=== PATIENT | male | born 1985 ===

== ENCOUNTER 2020-12-07 13:46 | Inpatient (IN) ==
[2020-12-07 14:36] LABS: Basophils # 0.1 10*3/uL (0.0-0.2); Basophils % 0.4 % (0.0-0.8); Eosinophils % 0.1 % (0.00-10.9); Hematocrit 51.7 VOL% (42.0-52.0); Hemoglobin 16.8 GM/DL (14.0-18.0); Immature Granulocytes % 0.3 %; Immature Granulocytes Absolute 0.04 #; Lymphocytes # 3.2 10*3/uL (1.4-4.0); Lymphocytes % 27.3 % (21.2-54.2); Mean Corpuscular HGB Conc 32.5 GM/DL (32-36); Mean Corpuscular Volume 86.6 FL (87-102); Mean Platelet Volume 11.7 FL (9.6-12.0); Neutrophils % 64.9 % (38.7-73.9); Platelet Count 296 T/CUMM (130-400); Red Blood Count 5.97 MC/CUMM (3.8-5.5); Red Cell Distribution Width 13.8 % (9.3-17.3); White Blood Count 11.5 T/CUMM (4-12)
[2020-12-07] MEDS ORDERED: SODIUM CHLORIDE 0.9% 2,000 ML IV STA (14:53)
[2020-12-07 15:02] LABS: Albumin 4.4 G/DL (3.4-5.0); Bilirubin,Total 0.6 MG/DL (0.2-1.0); Calcium 10.4 MG/DL (8.5-10.1); Osmolality,Calculated 295.2 MOS/KG (273-304); Potassium 5.4 MMOL/L (3.5-5.1); Total Protein 9.3 G/DL (5.0-7.5)
[2020-12-07 15:23] LABS: Bilirubin,Urine Negative (Negative); Blood, Urine Small mg/dL (Negative); Glucose,Urine (UA) >=500 mg/dL (Negative); Ketones,Urine 20 mg/dL (Negative); Nitrite,Urine Negative (Negative); Protein,Urine Negative; RBC,Urine 3 /HPF (0-4); Squamous Epithelial Cell,Urine Occasional /HPF (0-10); Urine Appearance CLEAR (Clear); Urine Color Straw (Yellow); Urine Specific Gravity 1.025 (1.001-1.035); Urine Urobilinogen < 2.0 EU/DL (0.2-1.0); WBC,Urine 1 /HPF (0-6)
[2020-12-07] MEDS ORDERED: INSULIN REGULAR 100 UNIT/ML IV STA (15:32)
[2020-12-07 16:26] LABS: ABG Base Excess -7.3 MMOL/L (-2.5-2.5); ABG HCO3 18.7 MMOL/L (20-26); ABG Oxygen Saturation 96.8 % (95-100); ABG PCO2 34.2 MM HG (35-48); ABG PH 7.326 (7.35-7.45); ABG PO2 99.2 MM HG (80-95); Pt O2 Delivery Device Room Air
[2020-12-07] MEDS ORDERED: ALBUTEROL 2.5 MG/3 ML NEB RESP TX PRN (17:12)
[2020-12-07] MEDS ORDERED: ALUMINUM/MAGNES/SIMETH MAX STR 30 ML UDCUP PO PRN (17:12)
[2020-12-07] MEDS ORDERED: ONDANSETRON 4 MG/2 ML VIAL IV PRN (17:12)
[2020-12-07] MEDS ORDERED: POTASSIUM CHLORIDE RIDER 10 MEQ in PREMIX 1 EACH IV PRN (17:14)
[2020-12-07] MEDS ORDERED: INSULIN REGULAR 100 UNIT/ML IV ONE (17:14)
[2020-12-07] MEDS ORDERED: DEXTROSE 50% 25 GM/50 ML VIAL IV PRN ×2 (17:14)
[2020-12-07] MEDS ORDERED: MAGNESIUM SULF RIDER 4 GM in PREMIX 1 EACH IV PRN (17:14)
[2020-12-07] MEDS ORDERED: MAGNESIUM SULF RIDER 2 GM in PREMIX 1 EACH IV PRN (17:14)
[2020-12-07] MEDS ORDERED: SODIUM CHLORIDE 0.9% 1,000 ML IV SCH (17:30)
[2020-12-07] MEDS ORDERED: FAMOTIDINE 20 MG/2 ML VIAL IV SCH (17:30)
[2020-12-07] MEDS ORDERED: INSULIN REGULAR DRIP 100 ML IV SCH (17:30)
[2020-12-07] MEDS ORDERED: LACTATED RINGERS 1,000 ML IV ONE (17:55)
[2020-12-07] MEDS ORDERED: GLUCAGON 1 MG VIAL IM PRN (17:56)
[2020-12-07] MEDS: INSULIN NPH/REGULAR 70/30 100 UNIT/ML SUBCUT SCH (18:10)
[2020-12-07 19:02] LABS: Calcium 9.7 MG/DL (8.5-10.1); Osmolality,Calculated 299.8 MOS/KG (273-304); Potassium 4.8 MMOL/L (3.5-5.1)
[2020-12-07] MEDS: LACTATED RINGERS 1,000 ML IV SCH (19:19)
[2020-12-07] MEDS: INSULIN LISPRO 100 UNIT/ML SUBCUT SCH (21:03)
[2020-12-08] MEDS: INSULIN LISPRO 100 UNIT/ML SUBCUT SCH ×5 (00:14→21:28)
[2020-12-08] MEDS: LACTATED RINGERS 1,000 ML IV SCH (01:53)
[2020-12-08 02:51] LABS: Basophils # 0.1 10*3/uL (0.0-0.2); Basophils % 0.9 % (0.0-0.8); Eosinophils # 0.2 10*3/uL (0.0-0.87); Eosinophils % 1.7 % (0.00-10.9); Hematocrit 38.6 VOL% (42.0-52.0); Immature Granulocytes % 0.2 %; Immature Granulocytes Absolute 0.02 #; Lymphocytes # 3.8 10*3/uL (1.4-4.0); Lymphocytes % 40.7 % (21.2-54.2); Mean Corpuscular HGB Conc 32.1 GM/DL (32-36); Mean Corpuscular Volume 86.5 FL (87-102); Mean Platelet Volume 11.8 FL (9.6-12.0); Monocytes % 9.6 % (1.7-12.7); Neutrophils % 46.9 % (38.7-73.9); White Blood Count 9.2 T/CUMM (4-12)
[2020-12-08 02:53] LABS: Hemoglobin 12.4 GM/DL (14.0-18.0); Platelet Count 209 T/CUMM (130-400); Red Blood Count 4.46 MC/CUMM (3.8-5.5)
[2020-12-08 02:56] LABS: Albumin 2.8 G/DL (3.4-5.0); Bilirubin,Total 0.5 MG/DL (0.2-1.0); Calcium 8.6 MG/DL (8.5-10.1); Osmolality,Calculated 288.5 MOS/KG (273-304); Potassium 3.9 MMOL/L (3.5-5.1); Risk Ratio 6.59; Total Protein 6.2 G/DL (5.0-7.5); VLDL CHOLESTEROL 28.6 MG/DL
[2020-12-08 05:10] LABS: Osmolality,Calculated 288.5 MOS/KG (273-304); Potassium 4.1 MMOL/L (3.5-5.1)
[2020-12-08] MEDS: INSULIN NPH/REGULAR 70/30 100 UNIT/ML SUBCUT SCH ×2 (07:47→08:20)
[2020-12-08] MEDS: FAMOTIDINE 20 MG TABLET PO SCH ×2 (08:21→21:28)
[2020-12-08] MEDS: POTASSIUM CHLORIDE 20 MEQ TABLET PO SCH ×2 (08:21→13:09)
[2020-12-08] MEDS ORDERED: ACETAMINOPHEN 500 MG TABLET PO PRN (09:31)
[2020-12-08] MEDS ORDERED: POTASSIUM CHLORIDE 20 MEQ TABLET PO SCH (13:30)
[2020-12-08] MEDS ORDERED: INSULIN NPH/REGULAR 70/30 100 UNIT/ML SUBCUT SCH (16:30)
[2020-12-09 07:46] LABS: Calcium 8.7 MG/DL (8.5-10.1); Osmolality,Calculated 280.1 MOS/KG (273-304); Potassium 3.7 MMOL/L (3.5-5.1)
[2020-12-09] MEDS: INSULIN LISPRO 100 UNIT/ML SUBCUT SCH ×4 (08:20→20:57)
[2020-12-09] MEDS: INSULIN NPH/REGULAR 70/30 100 UNIT/ML SUBCUT SCH (08:21)
[2020-12-09] MEDS: FAMOTIDINE 20 MG TABLET PO SCH ×2 (08:21→20:56)
[2020-12-09] MEDS: CHLORHEXIDINE 0.12% ORAL RINSE 60 ML BOTTLE SWISH/SPIT SCH (09:00)
[2020-12-09] MEDS ORDERED: INSULIN NPH/REGULAR 70/30 100 UNIT/ML SUBCUT SCH ×2 (11:04)
[2020-12-09] MEDS: metFORMIN 500 MG TABLET PO SCH (17:04)
[2020-12-09] MEDS: lisinopriL 5 MG TABLET PO SCH (17:04)
[2020-12-09] MEDS: ENOXAPARIN 40 MG/0.4 ML SYRINGE SUBCUT SCH (17:05)
[2020-12-09] MEDS ORDERED: INSULIN GLARGINE 100 UNIT/ML SUBCUT SCH (21:00)
[2020-12-10 08:06] LABS: Basophils # 0.1 10*3/uL (0.0-0.2); Basophils % 1.2 % (0.0-0.8); Eosinophils # 0.2 10*3/uL (0.0-0.87); Eosinophils % 2.8 % (0.00-10.9); Hemoglobin 14.7 GM/DL (14.0-18.0); Immature Granulocytes % 0.2 %; Immature Granulocytes Absolute 0.01 #; Lymphocytes # 2.9 10*3/uL (1.4-4.0); Lymphocytes % 43.8 % (21.2-54.2); Mean Corpuscular HGB Conc 33.4 GM/DL (32-36); Mean Corpuscular Volume 85.8 FL (87-102); Mean Platelet Volume 11.6 FL (9.6-12.0); Monocytes % 9.4 % (1.7-12.7); Neutrophils % 42.6 % (38.7-73.9); Platelet Count 188 T/CUMM (130-400); Red Blood Count 5.13 MC/CUMM (3.8-5.5); Red Cell Distribution Width 13.6 % (9.3-17.3); White Blood Count 6.5 T/CUMM (4-12)
[2020-12-10 08:27] LABS: Albumin 3.1 G/DL (3.4-5.0); Calcium 8.7 MG/DL (8.5-10.1); Osmolality,Calculated 280.8 MOS/KG (273-304); Potassium 3.9 MMOL/L (3.5-5.1); Total Protein 6.8 G/DL (5.0-7.5)
[2020-12-10] MEDS: INSULIN LISPRO 100 UNIT/ML SUBCUT SCH ×3 (08:31→17:06)
[2020-12-10] MEDS: FAMOTIDINE 20 MG TABLET PO SCH (08:32)
[2020-12-10] MEDS: lisinopriL 5 MG TABLET PO SCH (08:32)
[2020-12-10] MEDS: metFORMIN 500 MG TABLET PO SCH ×2 (08:32→17:06)
[2020-12-10] MEDS: CHLORHEXIDINE 0.12% ORAL RINSE 60 ML BOTTLE SWISH/SPIT SCH (09:16)
[2020-12-10 15:52] VITALS: BP 130/77
[2020-12-10] MEDS: ENOXAPARIN 40 MG/0.4 ML SYRINGE SUBCUT SCH (17:06)
[2020-12-10] MEDS ORDERED: INSULIN GLARGINE 100 UNIT/ML SUBCUT SCH (21:00)
== END 2020-12-10 17:45 | disposition home or self-care (01) | DRG 638 ==
LOC: N.ED 13:46 → N.ICU 17:12 → SUATTDRO 17:12 → N.ICU 17:45 → N.3E 12-08 09:34
PROVIDERS: ADMIT Internal Medicine; ATTEND Internal Medicine